=== PATIENT | male | born 1960 | race Caucasian/White ===

== ENCOUNTER 2021-04-03 10:46 | Day surgery (SDC) | payer BC, SELFPAY ==
[2021-04-03 11:20] VITALS: BP 142/83; PULSE 76; RESP 16; TEMP 36.8; O2SAT 99; BMI 31.4
[2021-04-03] MEDS: Lactated Ringers 1,000 ML 100 ML IV ×2 (11:20→15:01)
--- NOTE | 2021-04-03 14:21 | PCM.DC ---
Discharge Instructions Diet Discharge Diet: No restrictions Activity Discharge Activity: May Not Drive (for 3 days while taking narcotic pain medications.) Additional Activity Instructions:: in offloading shoe Dressing / Incision Call your doctor if your incision/area has: Continuous Slow Oozing, Increased Pain/ Swelling, Increased Redness and Foul Smelling Discharge Call your doctor if you observe: Fever of 101 or Higher, Numbness or Tingling, Shortness of breath, Dizziness, Calf discomfort and Uncontrolled pain Discharge Plan Admission Primary Reason for Your Visit: placement of spacer gel for radiation. Attending Provider: Tino Owens Primary Care Provider: Ambrosio Rodriguez Discharge Orders/Prescriptions Prescriptions: New ciprofloxacin HCl [Cipro] 500 mg tablet 500 mg PO BID Qty: 14 RF: 0 Continued multivitamin Tablet 1 tab PO DAILY RF: 0 meloxicam 15 mg tablet 15 mg PO PRN PRN (Reason: Pain) RF: 0 irbesartan-hydrochlorothiazide 300-12.5 mg tablet 1 tab PO DAILY RF: 0 Prostate 2.4 1,200-15-35 [id number] Capsule 2 cap PO DAILY RF: 0 Referrals / Follow Up: Ambrosio Rodriguez MD [Primary Care Provider] - Tino Owens MD [STAFF PHYSICIAN] - Disposition Discharge Orders: Discharge Patient (Routine); Ordered 04/03/21 Ordered By: Dr. Tino Owens
--- NOTE | 2021-04-03 14:21 | PCM.HP.STD ---
HPI - General HPI Narrative NICKI HUYNH, is a 60 M who presents for placement of spacer organ at risk gel matrix he has prostate cancer and is going to have radiation therapy. We talked about the risk and benefits of placing the spacer gel matrix we talked about the data supporting its use to lower the toxicity to the rectum we talked about the risk of getting infection he will be covered with antibiotics during the procedure and afterwards. [facility] Medical History (Updated 04/03/21 @ 14:[address] Tino Owens MD) Alcohol use Arthritis Cancer Hypertension Non-smoker Wears glasses Home Medications Prostate 2.4 2 cap PO DAILY 03/21/21 [History Last Taken 04/02/21 08:30] irbesartan-hydrochlorothiazide 1 tab PO DAILY 03/21/21 [History Last Taken 04/02/21 08:30] meloxicam 15 mg PO PRN PRN 03/21/21 [History Last Taken 04/02/21 08:30] multivitamin 1 tab PO DAILY 03/21/21 [History Last Taken 04/02/21 08:30] ciprofloxacin HCl [Cipro] 500 mg PO BID #14 tab 04/03/21 [Rx Last Taken Unknown] Allergy/AdvReac Type Severity Reaction Status Date / Time No Known Allergies Allergy Verified 04/03/21 11:25 Surgical History (Updated 03/21/21 @ 12:10 by Steffi Bowen) Hx of colonoscopy Social History Smoking Status: Current every day smoker ROS Constitutional Constitutional: Denies chills, fever(s) or malaise Eyes Eyes: Denies blurry vision or change in vision ENT HEENT: Reports none Cardiovascular Cardiovascular: Denies chest pain or palpitations Respiratory/Chest Respiratory/Chest: Denies cough or shortness of breath with exertion Gastrointestinal Gastrointestinal: Denies abdominal pain, constipation or diarrhea Musculoskeletal Musculoskeletal: Denies back pain, joint stiffness or joint swelling Integumentary Integumentary: Denies dry skin, jaundice, lesions or rash Neurologic Neurologic: Denies confusion, syncope or weakness Psychiatric Psychiatric: Reports none; Denies anxiety or depression Endocrine Endocrinology: Denies excessive sweating, fatigue or flushing Hematologic/Lymphatic Hematologic/Lymphatic: Denies anemia, easy bleeding or easy bruising Vital Signs Vital Signs Vital Signs: 04/03/21 11:20 Temperature 98.2 F Temperature Source Temporal Pulse Rate 76 Respiratory Rate 16 Respiratory Pattern Normal Blood Pressure 142/83 H Blood Pressure Mean 102 Blood Pressure Source Monitor Blood Pressure Position Sitting Blood Pressure Location Left Arm Pulse Ox 99 Oxygen Delivery Method Room Air Weight Weight: 99.2 kg Body Mass Index (BMI) 31.4 Physical Exam Const alert and oriented x3 General Appearance: cooperative HEENT normocephalic, head/scalp atraumatic, EAC's normal and TM's normal bilaterally Eyes PERRL and EOMs intact bilaterally Pupil: sluggish Neck no lymphadenopathy, supple and no JVD General: trachea midline Lymph Lymphatic: no lymphadenopathy noted, lymphedema and lymphadenopathy Resp normal respiratory effort, normal air movement and clear to auscultation bilaterally Cardio regular rate, regular rhythm and peripheral pulses 2+ throughout GI soft to palpation, non-tender and non-distended Extremity normal capillary refill and no clubbing, cyanosis or edema General Extremity: no tenderness to palpation of joints or extremities Skin no rashes or lesions noted General Skin Exam: turgor normal Lesions: no lesions Rashes: no rashes Neuro CN's II-XII intact bilaterally Speech: speech normal Motor Exam: strength 5/5 throughout; Negative for general weakness Psych thought process normal, cooperative and affect normal Appearance: appropriate Assessment & Plan Assessment/Plan (1) Cancer: PLAN: Plan for placement of spacer gel matrix for radiation
[2021-04-03] MEDS: Cefazolin 2 GM in 0.9% Normal Saline 100 ML IV (14:25)
--- NOTE | 2021-04-03 14:45 | PCM.OPRPT ---
Report of Operation Date of Procedure: 04/03/21 Pre-Operative Diagnosis: Prostate cancer Post-Operative Diagnosis: Same Surgery/Procedure Performed:: Transperineal placement of spacer organ at risk gel matrix Description of Surgical Findings:: Patient was taken back to the operating room after smooth induction of anesthesia he was placed supine on the table. The genitals and perineum were prepped and draped in usual sterile fashion. I then introduced a biplanar ultrasound probe into the rectum and performed ultrasonography and identified the Denonvilliers' fascia the prostate mid base and apex and seminal vesicles. The spacer gel mix was then prepared on the back table per manufactures instruction. Under ultrasound guidance in the midline perineum a bevel needle down we advanced through the perineum below the prostate into the space of Denonvilliers' fascia. This space which could be identified by ultrasound with a bright white layer between the prostate and the rectum. I then injected a puff of normal saline to identify the space further. After I confirmed that the needle was in the correct space in the mid prostate and the space of Denonvilliers' fascia between the rectum and the prostate. Then over the course of 15 seconds the gel matrix was injected slowly there was nice separation between the prostate and the rectum at the gel matrix was injected. The position of the gel matrix was confirmed by ultrasound. Then the injection needle was removed intact. Patient's perineum was cleaned patient was taken out of stirrups and then taken back to the PACU in good condition. Surgeon: Roman Type of Anesthesia: General Drains: None Admit VTE Documentation VTE Present on Admission: No VTE Mechan Device Prophylaxis: SCD's
[2021-04-03 14:51] VITALS: BP 132/80; BP 142/83; PULSE 87; RESP 16; TEMP 36.6; O2SAT 99
[2021-04-03 15:00] VITALS: BP 111/78; BP 142/83; PULSE 81; RESP 16; O2SAT 97
[2021-04-03 15:15] VITALS: BP 133/88; BP 142/83; PULSE 79; RESP 16; O2SAT 98
[2021-04-03 15:25] VITALS: BP 137/88; BP 142/83; PULSE 78; RESP 16; TEMP 36.9; O2SAT 96
[2021-04-03 16:23] VITALS: BP 142/83; BP 165/90; PULSE 91; RESP 18; TEMP 37.1; O2SAT 97
== END 2021-04-03 16:31 | disposition home or self-care (01) ==
LOC: SDC 10:49 → AC 10:51
PROVIDERS: PCP Internal Medicine; Referring Provider Urology; Visit Provider Urology
PROC: (CPT 55874; principal; 2021-04-03 12:45)
DX: C61 Malignant neoplasm of prostate (principal); R35.1 Nocturia; I10 Essential (primary) hypertension; M19.90 Unspecified osteoarthritis, unspecified site; F17.200 Nicotine dependence, unspecified, uncomplicated; Z79.1 Long term (current) use of non-steroidal anti-inflammatories (NSAID); Z79.899 Other long term (current) drug therapy
CPT/HCPCS: 55874; J7120; J2405